=== PATIENT | female | born 1950 | race Caucasian/White ===

== ENCOUNTER 2017-05-08 14:49 | Observation (INO) ==
[2017-05-08 15:38] LABS: Bilirubin,Urine Negative (Negative); Blood,Urine Moderate (Negative); Clarity,Urine Clear (Clear); Color,Urine Yellow (Yellow); Glucose,Urine (UA) Normal (Normal); Ketones,Urine Negative (Negative); Leukocyte Esterase,Urine Trace (Negative); Nitrite,Urine Negative (Negative); Protein,Urine Negative (Neg-Trace); Specific Gravity,Urine 1.017 (1.010-1.025); Urobilinogen,Urine Normal (Normal)
[2017-05-08 15:40] LABS: Bacteria,Urine None Seen per hpf (None-Few); Hyaline Casts,Urine None Seen per lpf (None-Few); Squamous Epithelial Cell,Urine Few per lpf (None-Few)
[2017-05-08 16:25] LABS: Basophils % 0.4 %; Eosinophils # 0.2 K/mcL (0.0-0.6); Eosinophils % 2.6 %; Hematocrit 39.8 % (35.3-44.9); Hemoglobin 12.5 g/dL (11.5-15.4); Immature Granulocytes % 0.1 % (0-4); Lymphocytes # 2.6 K/mcL (0.6-4.6); Lymphocytes % 36.4 %; Mean Corpuscular HGB Conc 31.4 g/dL (31.6-35.5); Mean Corpuscular Hemoglobin 27.1 pg (28.0-33.3); Mean Corpuscular Volume 86.1 fL (83.0-100.0); Mean Platelet Volume 10.1 fL (9.4-12.4); Monocytes # 0.4 K/mcL (0.0-1.3); Monocytes % 5.5 %; Platelet Count 324 K/mcL (140-400); Red Blood Count 4.62 M/mcL (3.82-4.97); Red Cell Distribution Width 14.6 % (11.5-14.5)
--- NOTE | 2017-05-08 17:23 | Emergency Department Note ---
Disposition Clinical Impression: Chest pain Qualifiers: Chest pain type: unspecified Qualified Code(s): R07.9 - Chest pain, unspecified Disposition: Admitted As Inpatient Condition: Good Referrals: NONE,PCP [Primary Care Provider] - Forms: ED Satisfaction Letter, Work/School Release Time of Disposition: 19:03 General Adult HPI - General Chief complaint: ED Abdominal Pain Stated complaint: LUQ Pain Time Seen by Provider: 05/08/17 17:12 Source: patient Mode of arrival: ambulatory Limitations: no limitations Nursing Notes Reviewed: Yes Vital Signs Reviewed: Yes - History of Present Illness HPI Narrative: 67-year-old female who comes in complaining of left-sided chest pain. She points to the lateral lower left chest and wraps around to the anterior aspect. Cardiac risk factors include family history. Pt Subjective Complaint: Chest pain Onset (ago): day(s) (2 days) Location: chest Radiation: non-radiation Pain Severity: moderate Pain Scale: 5 Quality: aching Consistency: constant Improves with: nothing Worsens with: nothing Associated symptoms: Reports: chest pain Treatments Prior to Arrival: none - Related Data Previous Rx's Medication Instructions Recorded Albuterol Sulfate [Albuterol 2 puff IH Q4HR #1 hfa.aer.ad 04/03/17 Inhaler] Guaifenesin/Dm/Pseudoephedrine 1 each PO BID #20 tablet 04/03/17 [Capmist Dm Tablet] Allergies Allergy/AdvReac Type Severity Reaction Status Date / Time tetanus immune globulin Allergy SWELLING Verified 04/03/17 11:23 Penicillins AdvReac Itching Verified 04/03/17 11:23 Sulfa (Sulfonamide AdvReac Gastrointestinal Verified 04/03/17 11:23 Antibiotics) Upset steroids AdvReac LOWERED Uncoded 04/03/17 11:23 HEART RATE All systems ED: reviewed and negative except as stated. Constitutional: Denies: fever, chills, weakness, weight change Eyes: Denies: eye pain, eye discharge, vision change ENT ED: Denies: ear pain, throat pain, dental pain, hearing loss, epistaxis, congestion, dysphagia Cardiovascular: Reports: chest pain. Denies: palpitations, dyspnea on exertion , edema, syncope Respiratory: Denies: cough, dyspnea, wheezes, hemoptysis, stridor Gastrointestinal: Denies: abdominal pain, nausea, vomiting, diarrhea, constipation, hematemesis, melena, hematochezia Genitourinary: Denies: dysuria, frequency, hematuria, discharge Musculoskeletal: Denies: back pain, neck pain, arthralgia, myalgia Integumentary: Denies: rash, abrasion, lesions Neurological: Denies: headache, weakness, numbness, paresthesias, confusion, abnormal gait, vertigo Psychiatric: Denies: anxiety, depression, suicidal thoughts, homicidal thoughts , auditory hallucinations, visual hallucinations Endocrine: Denies: fatigue Hematological/Lymphatic: Denies: easy bleeding, easy bruising Allergic/Immunologic: Denies: facial swelling, urticaria Past Medical History - Past Medical History Medical history: Reports: non-contributory Surgical history: Reports: appendectomy, cholecystectomy Psychiatric history: Reports: no psych history 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 - Social History Smoking Status: Never smoker Smokeless Tobacco Status: No Alcohol use: Reports: none Drug use: Reports: none Physical Exam - General Limitations: no limitations General appearance: alert - Head Head exam: atraumatic, normocephalic, normal inspection - Eye Eye exam: Present: normal appearance, PERRL, EOMI - ENT ENT exam: normal exam, normal oropharynx, mucous membranes moist - Neck Neck exam: Present: normal inspection, full ROM, trachea midline - Chest Chest inspection: Present: normal inspection, symmetric chest wall rise - Respiratory Respiratory exam: Present: normal lung sounds bilaterally - Cardiovascular Cardiovascular exam: Present: regular rate, normal rhythm, normal heart sounds - Abdominal Exam Abdominal exam: Present: soft, Non-Tender. Absent: tenderness, distention, guarding, rebound, rigidity - Extremities Exam Extremities exam: Present: normal inspection, full ROM. Absent: tenderness, pedal edema - Expanded Lower Extremity Exam Neurovascular/Tendon exam: Absent: motor deficit, sensory deficit, tendon deficit Gait: observed and normal - Back Exam Back exam: Present: normal inspection, full ROM. Absent: tenderness - Neurological Exam Neurological exam: Present: alert, oriented X3 - Psychiatric Psychiatric exam: Present: normal affect, normal mood - Skin Skin exam: Present: warm, dry, intact, normal color Course - Reevaluation(s) Reevaluation #1: 67-year-old female who comes in complaining of pain in her chest. Since been gone for the last couple of days. Initial EKG no acute change initial troponin negative patient will be admitted for further evaluation. Time: 19:03 - Consultations Consultation #1: Discussed with Dr. Tolbert, admit. Time: 19:32 Vital Signs Temperature 98.7 F 05/08/17 15:09 Pulse Rate 60 05/08/17 15:09 Respiratory Rate 18 05/08/17 15:09 Blood Pressure 128/79 05/08/17 15:09 O2 Sat by Pulse Oximetry 98 05/08/17 15:09 Temperature 98.7 F 05/08/17 15:09 Pulse Rate 55 05/08/17 18:15 Respiratory Rate 10 05/08/17 18:15 Blood Pressure 139/84 05/08/17 18:15 O2 Sat by Pulse Oximetry 100 05/08/17 18:15 Oxygen Delivery Oxygen Delivery Room Air Medical Decision Making - Lab Data Lab results reviewed: Yes I reviewed the patient's lab results. Result diagrams: 05/08/17 16:01 05/08/17 16:01 Lab Results 05/08/17 05/08/17 05/08/17 Range/Units 15:18 16:01 16:01 WBC 7.2 (4.3-11.1) K/mcL RBC 4.62 (3.82-4.97) M/mcL Hgb 12.5 (11.5-15.4) g/dL Hct 39.8 (35.3-44.9) % MCV 86.1 (83.0-100.0) fL MCH 27.1 L (28.0-33.3) pg MCHC 31.4 L (31.6-35.5) g/dL RDW 14.6 H (11.5-14.5) % Plt Count 324 (140-400) K/mcL MPV 10.1 (9.4-12.4) fL Immature Gran % 0.1 (0-4) % Seg Neutrophils % 55.0 % Lymphocytes % 36.4 % Monocytes % 5.5 % Eosinophils % 2.6 % Basophils % 0.4 % Neutrophils # 4.0 (1.6-8.9) K/mcL Lymphocytes # 2.6 (0.6-4.6) K/mcL Monocytes # 0.4 (0.0-1.3) K/mcL Eosinophils # 0.2 (0.0-0.6) K/mcL Basophils # 0.0 (0.0-0.2) K/mcL Sodium 139 (136-145) mEq/L Potassium 4.2 (3.5-5.1) mEq/L Chloride 106 (98-107) mEq/L Carbon Dioxide 29 (23-29) mEq/L BUN 12 (8-23) mg/dL Creatinine 0.74 (0.60-1.20) mg/dL Est GFR ( Amer) > 60 (> 60) Est GFR (Non-Af Amer) > 60 (> 60) BUN/Creatinine Ratio 16 (6-26) Glucose 108 H (70-105) mg/dL Calculated Osmolality 288 (280-300) Calcium 9.4 (8.6-10.3) mg/dL Total Bilirubin 0.4 (0.3-1.0) mg/dL Direct Bilirubin 0.1 (0.0-0.2) mg/dL Indirect Bilirubin 0.3 (0.0-1.2) mg/dL AST 13 (13-39) Units/L ALT 8 (7-52) Units/L Alkaline Phosphatase 78 (34-104) Units/L Troponin I (< 0.04) ng/mL Serum Total Protein 7.1 (6.4-8.9) g/dL Albumin 4.2 (3.5-5.7) g/dL Globulin 2.9 (2.4-3.5) g/dL Albumin/Globulin Ratio 1.4 (1.1-2.2) Lipase 11 (11-82) Units/L Urine Color Yellow (Yellow) Urine Clarity Clear (Clear) Urine pH 6.0 (5.0-8.0) pH Units Ur Specific [place] 1.017 (1.010-1.025) Urine Protein Negative (Neg-Trace) mg/dL Urine Glucose (UA) Normal (Normal) mg/dL Urine Ketones Negative (Negative) mg/dL Urine Blood Moderate H (Negative) Urine Nitrite Negative (Negative) Urine Bilirubin Negative (Negative) Urine Urobilinogen Normal (Normal) mg/dL Ur Leukocyte Esterase Trace H (Negative) Urine Microscopic RBC 5-15 H (0-3) per hpf Urine Microscopic WBC 5-15 H (0-3) per hpf Ur Squamous Epith Cells Few (None-Few) per lpf Urine Bacteria None Seen (None-Few) per hpf Hyaline Casts None Seen (None-Few) per lpf Ur Culture Indicated? YES A (NO) 05/08/17 Range/Units 16:01 WBC (4.3-11.1) K/mcL RBC (3.82-4.97) M/mcL Hgb (11.5-15.4) g/dL Hct (35.3-44.9) % MCV (83.0-100.0) fL MCH (28.0-33.3) pg MCHC (31.6-35.5) g/dL RDW (11.5-14.5) % Plt Count (140-400) K/mcL MPV (9.4-12.4) fL Immature Gran % (0-4) % Seg Neutrophils % % Lymphocytes % % Monocytes % % Eosinophils % % Basophils % % Neutrophils # (1.6-8.9) K/mcL Lymphocytes # (0.6-4.6) K/mcL Monocytes # (0.0-1.3) K/mcL Eosinophils # (0.0-0.6) K/mcL Basophils # (0.0-0.2) K/mcL Sodium (136-145) mEq/L Potassium (3.5-5.1) mEq/L Chloride (98-107) mEq/L Carbon Dioxide (23-29) mEq/L BUN (8-23) mg/dL Creatinine (0.60-1.20) mg/dL Est GFR ( Amer) (> 60) Est GFR (Non-Af Amer) (> 60) BUN/Creatinine Ratio (6-26) Glucose (70-105) mg/dL Calculated Osmolality (280-300) Calcium (8.6-10.3) mg/dL Total Bilirubin (0.3-1.0) mg/dL Direct Bilirubin (0.0-0.2) mg/dL Indirect Bilirubin (0.0-1.2) mg/dL AST (13-39) Units/L ALT (7-52) Units/L Alkaline Phosphatase (34-104) Units/L Troponin I < 0.03 (< 0.04) ng/mL Serum Total Protein (6.4-8.9) g/dL Albumin (3.5-5.7) g/dL Globulin (2.4-3.5) g/dL Albumin/Globulin Ratio (1.1-2.2) Lipase (11-82) Units/L Urine Color (Yellow) Urine Clarity (Clear) Urine pH (5.0-8.0) pH Units Ur Specific [place] (1.010-1.025) Urine Protein (Neg-Trace) mg/dL Urine Glucose (UA) (Normal) mg/dL Urine Ketones (Negative) mg/dL Urine Blood (Negative) Urine Nitrite (Negative) Urine Bilirubin (Negative) Urine Urobilinogen (Normal) mg/dL Ur Leukocyte Esterase (Negative) Urine Microscopic RBC (0-3) per hpf Urine Microscopic WBC (0-3) per hpf Ur Squamous Epith Cells (None-Few) per lpf Urine Bacteria (None-Few) per hpf Hyaline Casts (None-Few) per lpf Ur Culture Indicated? (NO) - Radiology Data Radiology results reviewed: Yes I reviewed the patient's radiology results. Chest X-Ray 05/08/17 17:20 IMPRESSION: No radiographic evidence of acute cardiopulmonary disease. D/ / Luis Menchaca / Luis Menchaca Interpreting Provider: Luis Menchaca - EKG Data EKG #1 EKG attestation: Yes I reviewed and interpreted this EKG. EKG shows normal: sinus rhythm Rate: normal Rhythm: NSR Interpretation: no acute changes
[2017-05-08 17:59] LABS: Alanine Aminotransferase 8 Units/L (7-52); Albumin 4.2 g/dL (3.5-5.7); Albumin/Globulin Ratio 1.4 (1.1-2.2); Alkaline Phosphatase 78 Units/L (34-104); Aspartate Amino Transferase 13 Units/L (13-39); BUN/Creatinine Ratio 16 (6-26); Bilirubin,Direct 0.1 mg/dL (0.0-0.2); Bilirubin,Indirect 0.3 mg/dL (0.0-1.2); Bilirubin,Total 0.4 mg/dL (0.3-1.0); Blood Urea Nitrogen 12 mg/dL (8-23); Calcium 9.4 mg/dL (8.6-10.3); Carbon Dioxide 29 mEq/L (23-29); Chloride 106 mEq/L (98-107); Globulin 2.9 g/dL (2.4-3.5); Glucose 108 mg/dL (70-105); Lipase 11 Units/L (11-82); Osmolality,Calculated 288 (280-300); Potassium 4.2 mEq/L (3.5-5.1); Sodium 139 mEq/L (136-145); Total Protein 7.1 g/dL (6.4-8.9); eGFR For African Americans > 60 (> 60); eGFR For Non-African Americans > 60 (> 60)
[2017-05-08] MEDS ORDERED: Acetaminophen 325 MG TABLET PO ONE (18:17)
[2017-05-08] MEDS ORDERED: traMADol 50 MG TABLET PO PRN (21:47)
[2017-05-08] MEDS ORDERED: Acetaminophen 325 MG TABLET PO PRN (21:47)
[2017-05-08] MEDS ORDERED: Naloxone 0.4 MG/ML INJ IVP PRN (21:47)
--- NOTE | 2017-05-08 22:13 | Internal Med History&Physical ---
Date of Encounter: 05/08/17 Time of Encounter: 21:20 Assessment and Plan (1) Chest pain Current visit: Yes Status: Acute 1. Will cycle troponins, EKGs. 2. Will order fasting lipid profile. 3. Will schedule stress test in the morning if above negative. 4. Patient will likely need further GI work-up as outpatient for non-cardiac source of pain. Based upon history, I suspect her chest pain is GI in nature. 5. Will try Prilosec while in hospital to treat her GERD/CP. Qualifiers: Chest pain type: precordial pain Qualified Code(s): R07.2 - Precordial pain (2) GERD (gastroesophageal reflux disease) Current visit: Yes Status: Acute 1. Will try Prilosec orally. 2. I suspect this is her source of chest pain based upon history. 3. If above cardiac work-up negative, she will likely need outpatient GI work up. Qualifiers: Esophagitis presence: without esophagitis Qualified Code(s): K21.9 - Gastro -esophageal reflux disease without esophagitis (3) DVT prophylaxis Current visit: Yes Status: Acute 1. Heparin SQ. Internal Medicine - H&P: HPI Chief complaint: chest pain Admitted From: Emergency Dept Plans for Post Hospital Care: Home History of present illness: Ms. Fulton is a 67 year old female who presents with a 2 day history of chest pain and pressure in her left chest radiating to her left mid back. Pain is present both at rest and with exertion. Because of persistence of symptoms, she came to the ER where she was evaluated and admitted to the hospitalist service. Upon my assessment of the patient, she has minimal pain. She denies any fevers , cough, congestion, dyspnea, diaphoresis, nausea, or vomiting. She does complain of some dyspepsia and stomach upset. She also states the pain is similar to that of her gallbladder pain. She had cholecystectomy about a year and a half ago. She denies any change in bowel or bladder habits. Family history is pertinent for coronary artery disease. Her sister just had open heart surgery recently for severe coronary disease. She had a stress test 2 years ago, which was negative. Additionally, she had a heart catheterization about 15 years ago which was negative as well. Past Med Surg Social Fam HX - Past Medical History Attestation: Yes The following information was validated with the patient. Source: patient, old records reviewed Medical history: no medical history Psychiatric history: no psych history - Past Surgical History Surgical History: appendectomy, cholecystectomy - Social History Smoking Status: Never smoker Smokeless Tobacco Status: No Alcohol use: none Drug use: none Current living situation: Home Activity Level: Independent ambulation Recent Out of Country Travel Within the Last 8 Weeks: No - Family History Sister Living Status: Still Living Hx Family Cardiac Disorders: Yes (CAD; CABG) - Additional Family History Additional family history: Mother and Father with CAD Internal Medicine - H&P: Meds No Known Home Drugs 05/08/17 [History] 3 Allergy/AdvReac Type Severity Reaction Status Date / Time tetanus immune globulin Allergy SWELLING Verified 04/03/17 11:23 Penicillins AdvReac Itching Verified 04/03/17 11:23 Sulfa (Sulfonamide AdvReac Gastrointestinal Verified 04/03/17 11:23 Antibiotics) Upset steroids AdvReac LOWERED Uncoded 04/03/17 11:23 HEART RATE - Constitutional Constitutional: no chills, no fever(s) - EENT Eyes: no blurry vision, no change in vision Ears: no ear pain, no tinnitus Nose, mouth and throat: no nasal congestion, no sinus pain, no sinus pressure - Cardiovascular Cardiovascular ROS IM: chest pain, no diaphoresis, no dyspnea, no dyspnea on exertion, no palpitations, no syncope - Respiratory Respiratory: no cough, no dyspnea, no hemoptysis, no dyspnea on exertion, no chest congestion, no excessive phlegm production, no change in phlegm color - Gastrointestinal Gastrointestinal: dyspepsia, heartburn, no abdominal pain, no diarrhea, no hematemesis, no hematochezia, no melena, no nausea, no vomiting - Genitourinary Genitourinary: no dysuria, no flank pain, no hematuria - Musculoskeletal Musculoskeletal ROS IM: back pain, no arthralgias - Integumentary Integumentary IM: no rash, no jaundice - Neurological Neurological ROS: no dizziness, no focal weakness, no frequent falls, no headache(s) - Psychiatric Psychiatric: no anxiety, no depression - Endocrine Endocrine IM: no polydipsia, no polyuria - Hematologic/Lymphatic Hematologic/Lymphatic: no easy bruising, no lymphadenopathy - Allergic/Immunologic Allergic/Immunologic: GI upset with certain foods, no wheezing - Constitutional Vitals: Temp Pulse Resp BP Pulse Ox 98.7 F 58 15 124/71 99 05/08/17 15:09 05/08/17 19:52 05/08/17 20:38 05/08/17 20:38 05/08/17 19:52 General appearance: Present: cooperative, A&O X 3, pleasant, no acute distress, answers questions appropriately - Head Head exam: Present: atraumatic, normal inspection - Eye Eye exam: Present: EOMI, normal appearance, PERRL. Absent: scleral icterus Pupils: Present: normal accommodation - ENT ENT exam: Present: mucous membranes moist, normal exam - Neck Neck exam general surgery: Present: full ROM, supple. Absent: lymphadenopathy, tenderness, nuchal rigidity - Expanded Neck Exam Neck exam: Absent: carotid bruit - Respiratory Respiratory exam: Present: CTAB. Absent: chest wall tenderness, rales, respiratory distress, rhonchi, wheezes - Cardiovascular Cardiovascular exam: Present: RRR, +S1, +S2. Absent: diastolic murmur, systolic murmur - GI/Abdominal GI/Abdominal exam: Present: normal bowel sounds, soft. Absent: hepatomegaly, mass, splenomegaly, tenderness - Extremities Exam Extremities exam: Present: full ROM, normal capillary refill, warm, radial pulses palpable and symmetrical. Absent: calf tenderness, joint swelling, pedal edema, tenderness - Back Exam Back exam: Present: normal inspection. Absent: CVA tenderness (L), CVA tenderness (R) - Neurological Exam Neurological exam: Present: alert, CN II-XII intact, oriented X3, no focal deficits - Psychiatric Psychiatric exam: Present: normal affect, normal mood - Skin Skin exam: Present: dry, warm. Absent: rash Internal Med - H&P Results - Labs CBC & Chem 7: 05/08/17 16:01 05/08/17 16:01 - EKG Data -: EKG Interpreted by Myself EKG shows normal: sinus rhythm - EKG Data Prior EKG available for review: no EKG comments: 05/08/17 22:17 NSR; no acute ST-T changes - Diagnostic Studies Chest x-ray Status: image reviewed by me (negative)
[2017-05-08] MEDS: 0.9 % Sodium Chloride 1,000 ML IVC SCH (22:20)
[2017-05-08] MEDS: *HR* Heparin 5,000 UNIT/ML VIAL SQ SCH (22:21)
[2017-05-09] MEDS: *HR* OxyCODONE Immed Rel 5 MG TABLET PO PRN ×3 (00:52→08:09)
[2017-05-09 05:22] LABS: INR 1.1; Prothrombin Time 11.9 Seconds (9.4-12.1)
[2017-05-09 05:25] LABS: Activated Partial Thrombo Time 21.6 Seconds (26.0-36.0)
[2017-05-09] MEDS: *HR* Heparin 5,000 UNIT/ML VIAL SQ SCH ×2 (05:35→14:40)
[2017-05-09] MEDS ORDERED: *HR* OxyCODONE Immed Rel 5 MG TABLET PO ONE (05:49)
[2017-05-09 05:59] LABS: Alanine Aminotransferase 7 Units/L (7-52); Albumin 3.5 g/dL (3.5-5.7); Albumin/Globulin Ratio 1.5 (1.1-2.2); Alkaline Phosphatase 64 Units/L (34-104); Aspartate Amino Transferase 13 Units/L (13-39); BUN/Creatinine Ratio 17 (6-26); Bilirubin,Total 0.3 mg/dL (0.3-1.0); Blood Urea Nitrogen 12 mg/dL (8-23); Calcium 8.6 mg/dL (8.6-10.3); Carbon Dioxide 27 mEq/L (23-29); Chloride 109 mEq/L (98-107); Chol/HDL Ratio 2.7 (0-4.9); Cholesterol 155 mg/dL (< 200); Globulin 2.4 g/dL (2.4-3.5); Glucose 101 mg/dL (70-105); HDL Cholesterol 57 mg/dL (40-59); LDL Cholesterol,Calculated 85 mg/dL (0-99); Magnesium 2.2 mg/dL (1.6-2.6); Osmolality,Calculated 290 (280-300); Potassium 4.1 mEq/L (3.5-5.1); Sodium 140 mEq/L (136-145); Total Protein 5.9 g/dL (6.4-8.9); Triglycerides 65 mg/dL (< 150); eGFR For African Americans > 60 (> 60); eGFR For Non-African Americans > 60 (> 60)
[2017-05-09] MEDS ORDERED: Regadenoson 0.4 MG/5 ML SYRINGE IVP ONE (06:03)
[2017-05-09 06:22] LABS: Basophils % 0.6 %; Eosinophils # 0.3 K/mcL (0.0-0.6); Eosinophils % 3.8 %; Hematocrit 35.9 % (35.3-44.9); Hemoglobin 11.1 g/dL (11.5-15.4); Immature Granulocytes % 0.2 % (0-4); Lymphocytes # 2.8 K/mcL (0.6-4.6); Lymphocytes % 42.9 %; Mean Corpuscular HGB Conc 30.9 g/dL (31.6-35.5); Mean Corpuscular Hemoglobin 26.5 pg (28.0-33.3); Mean Corpuscular Volume 85.7 fL (83.0-100.0); Mean Platelet Volume 10.5 fL (9.4-12.4); Monocytes # 0.3 K/mcL (0.0-1.3); Monocytes % 5.2 %; Neutrophils # 3.1 K/mcL (1.6-8.9); Nucleated Red Blood Cells 0.5 /100 WBC (0); Platelet Count 267 K/mcL (140-400); Red Blood Count 4.19 M/mcL (3.82-4.97); Red Cell Distribution Width 14.5 % (11.5-14.5); Segmented Neutrophils % 47.3 %
[2017-05-09] MEDS ORDERED: Ondansetron 4 MG/2 ML VIAL IVP PRN (07:48)
[2017-05-09] MEDS ORDERED: Ondansetron 4 MG/2 ML VIAL ONE (07:52)
[2017-05-09] MEDS ORDERED: *HR* Promethazine 25 MG/ML VIAL IVP ONE (10:49)
[2017-05-09] MEDS ORDERED: Ketorolac 15 MG/ML VIAL IVP PRN (11:00)
[2017-05-09] MEDS ORDERED: SUMAtriptan 6 MG/0.5 ML SQ ONE (11:07)
[2017-05-09] MEDS: 0.9 % Sodium Chloride 1,000 ML IVC SCH (11:28)
--- NOTE | 2017-05-09 14:24 | Electrocardiograph Report ---
[place] [id number] Test Date: 2017-05-08 Pat Name: Joelle Fulton Department: 103 Room: 3B Gender: F Hand [employer]: CHRISTIANO : 1950 Requested By: Christopher Melo Order Number: [id number] Reading MD: Tony Walter DO Measurements Intervals [place] Rate: 60 P: -2 WA: 169 QRS: 12 QRSD: 90 T: 43 QT: 407 QTc: 408 Interpretive Statements SINUS RHYTHM POSSIBLE RIGHT VENTRICULAR CONDUCTION DELAY Electronically Signed On 05-09-2017 14:22:53 EST by Tony Walter DO
--- NOTE | 2017-05-09 18:54 | Internal Med Progress Note ---
Date of Encounter: 05/09/17 Time of Encounter: 12:00 - Assessment and plan (1) Chest pain Current Visit: Yes Status: Acute Assessment and plan: She has been experiencing chest pain for the past 2 days cardiac troponin was [address]-T wave abnormalities. She was to undergo a cardiac stress test this a.m. however she did experience a headache as well as nausea and vomiting and was unable to complete procedure. We will make patient nothing by mouth at midnight -attempt to repeat test in a.m. We will continue with Prilosec-patient may need a follow-up as outpatient with GI if stress is negative Qualifiers: Chest pain type: precordial pain Qualified Code(s): R07.2 - Precordial pain (2) Headache Current Visit: Yes Status: Acute Assessment and plan: Patient had sudden onset of headache initiated at the base of her skull radiating to her frontal area. She does have photophobia as well as blurred vision she has nausea and vomiting. Patient denies any history of migraines denies any trauma to her head. We will obtain CT of head to rule out any possible intracranial abnormalities or bleeding We will give a dose of Imitrex as well as Phenergan Qualifiers: Headache type: unspecified Headache chronicity pattern: acute headache Intractability: not intractable Qualified Code(s): R51 - Headache (3) GERD (gastroesophageal reflux disease) Current Visit: Yes Status: Acute Assessment and plan: Suspect the chest pain may be related to GI upset. We will continue with Prilosec If cardiac workup is negative patient will require a GI workup as outpatient Qualifiers: Esophagitis presence: without esophagitis Qualified Code(s): K21.9 - Gastro -esophageal reflux disease without esophagitis (4) DVT prophylaxis Current Visit: Yes Status: Acute Assessment and plan: Happens subcutaneous - Time Spent With Patient 25 - 35 minutes - Subjective Interval history: Patient presented to the ER 2 day history of chest pain pressure left chest radiating to her left back initial troponin was negative she also had been experiencing some nausea she denied any abdominal pain she did have her gallbladder removed about a year and a half ago. She has a family history of coronary artery disease had a sister with a recent open heart surgery. She had a stress test 2 years ago which was negative. She was scheduled to undergo a cardiac stress test this a.m. however upon arrival she began to experience nausea and vomiting. She was given an antibiotic however was unable to complete the exam. Upon assessment patient was complaining of throbbing headache initiated at the base of her head radiating to the front of her head. She did have photophobia as well as blurred vision neuro exam was unremarkable. Patient denies any history of migraines states she has never experienced a headache like this before. She was given Imitrex as well as Phenergan CT of head was obtained. - Constitutional Vitals: Temp Pulse Resp BP Pulse Ox 98.3 F 63 15 108/69 95 05/09/17 15:59 05/09/17 15:59 05/09/17 15:59 05/09/17 15:59 05/09/17 15:59 General appearance: Present: cooperative, A&O X 3, pleasant, no acute distress, answers questions appropriately - Head Head exam: Present: atraumatic, normocephalic - Eye Eye exam: Present: PERRL, conjuntiva pink, sclera anicteric Pupils: Present: PERRL - Neck Neck exam general surgery: Present: supple, trachea midline. Absent: lymphadenopathy - Respiratory Respiratory exam: Present: CTAB. Absent: accessory muscle use, rales, rhonchi, wheezes - Cardiovascular Cardiovascular exam: Present: RRR, +S1, +S2. Absent: diastolic murmur, gallop, rubs, systolic murmur - GI/Abdominal GI/Abdominal exam: Present: normal bowel sounds, soft, no peritoneal signs. Absent: distended, tenderness - Extremities Exam Extremities exam: Present: warm, radial pulses palpable and symmetrical. Absent : calf tenderness, cyanotic, pedal edema - Neurological Exam Neurological exam: Present: CN II-XII intact, oriented X3, no focal deficits, strengths equal and symetr throughout. Absent: pronater drift, facial droop, speech deficit Additional comments: Complains of headache and blurred vision - Expanded Neurological Exam Patient oriented to: Present: person, place, time Speech: Present: fluid speech Neuro motor strength exam: LUE: 5, RUE: 5, LLE: 5, RLE: 5 Coma Scale Eye Opening: Spontaneous Coma Scale Motor Response: Obeys Commands Coma Scale Verbal Response: Oriented Coma Scale Total: 15 Internal Medicine: Result - Labs CBC & Chem 7: 05/09/17 06:06 05/09/17 04:43 Labs: Short CBC 05/09/17 Range/Units 06:06 WBC 6.5 (4.3-11.1) K/mcL Hgb 11.1 L (11.5-15.4) g/dL Hct 35.9 (35.3-44.9) % Plt Count 267 (140-400) K/mcL Neutrophils # 3.1 (1.6-8.9) K/mcL BMP 05/09/17 04:43 Sodium 140 Potassium 4.1 Chloride 109 H Carbon Dioxide 27 BUN 12 Creatinine 0.69 Glucose 101 Calcium 8.6 Cardiac Enzymes 05/08/17 05/09/17 05/09/17 Range/Units 22:12 04:43 10:07 Troponin I < 0.03 < 0.03 < 0.03 (< 0.04) ng/mL Liver Function 05/09/17 Range/Units 04:43 Total Bilirubin 0.3 (0.3-1.0) mg/dL AST 13 (13-39) Units/L ALT 7 (7-52) Units/L Alkaline Phosphatase 64 (34-104) Units/L Albumin 3.5 (3.5-5.7) g/dL - ABG Interpretation ABG results: PT/INR, D-dimer PT 11.9 Seconds (9.4-12.1) 05/09/17 04:43 - EKG Interpretation EKG shows normal: sinus rhythm - Impressions Impressions Head CT 05/09/17 10:58 IMPRESSION: No acute intracranial abnormality. D/ / Kerwin Olguin MD / Kerwin Olguin MD Interpreting Provider: Kerwin Olguin MD Consult Discharge Plan - Plan Referrals: NONE,PCP [Primary Care Provider] -
[2017-05-09] MEDS: *HR* Promethazine 25 MG/ML VIAL IVP PRN (20:01)
[2017-05-09] MEDS: Ketorolac 15 MG/ML VIAL IVP PRN (20:01)
[2017-05-10] MEDS: Ketorolac 15 MG/ML VIAL IVP PRN (03:58)
[2017-05-10] MEDS: *HR* Heparin 5,000 UNIT/ML VIAL SQ SCH ×2 (05:48→16:47)
[2017-05-10] MEDS ORDERED: Ketorolac 15 MG/ML VIAL IVP ONE (06:19)
[2017-05-10] MEDS: *HR* Promethazine 25 MG/ML VIAL IVP PRN (06:26)
[2017-05-10] MEDS ORDERED: Regadenoson 0.4 MG/5 ML SYRINGE IVP ONE (08:34)
--- NOTE | 2017-05-10 13:59 | Neurology - Consult Note ---
<SaadiaSunny sosa - Last Filed: 05/10/17 16:18> Date of Encounter: 05/10/17 Time of Encounter: 13:56 Assessment and Plan (1) Headache Current Visit: Yes Status: Acute Patient's headaches could be indicative of atypical migraines as she appears to have visual auras with photophobia, phonophobia, and nausea. Patient's headaches are bilateral which is not usual migraines but certainly possible. Patient has no focal findings and head CT was negative. We will obtain CTA to rule out cerebral aneurysm. K continue symptomatic treatment with sumatriptan as needed. If patient's migraines become frequent could consider prophylactic treatment with Topamax. Qualifiers: Headache type: unspecified Headache chronicity pattern: acute headache Intractability: not intractable Qualified Code(s): R51 - Headache History of Present Illness Chief complaint: Chest Pain HPI: Ms. Fulton is a 67 year old female with no significant medical history was admitted initially for chest pain. Neurology was consulted due to headache. Patient reports for the last 5 or 6 years she has had a headache on a near daily basis. She states the pain starts in the back of her head and neck and radiates to the front of her head. She states this is bilateral in nature. She reports at times she has some blurry vision prior to the headache starting. She reports nausea, photophobia, phonophobia. She states the headache that she developed 2 days ago while in inpatient was the worst headache she has ever had. It felt similar in nature to her previous headaches but was more severe. She states it is improved with pain medication but has yet to totally resolved. She denies any focal weakness. She states that her mother and 2 of her siblings suffer from migraine headaches. She reports an injury at work 3-4 years ago in which something fell off the shelf and hit her in the neck that made her headaches worse. Past Med Surg Social Fam HX - Past Medical History Medical history: no medical history Psychiatric history: no psych history - Past Surgical History Surgical History: appendectomy, cholecystectomy - Social History Smoking Status: Never smoker Smokeless Tobacco Status: No Alcohol use: none Drug use: none - Family History Sister Hx Family Cardiac Disorders: Yes (CABG) Medications and Allergies No Known Home Drugs 05/08/17 [History] 3 Allergy/AdvReac Type Severity Reaction Status Date / Time tetanus immune globulin Allergy SWELLING Verified 04/03/17 11:23 Penicillins AdvReac Itching Verified 04/03/17 11:23 Sulfa (Sulfonamide AdvReac Gastrointestinal Verified 04/03/17 11:23 Antibiotics) Upset steroids AdvReac LOWERED Uncoded 04/03/17 11:23 HEART RATE All Systems: A 10-system review of systems was performed and is negative for pertinent findings except as documented above in the HPI. Physical Examination - Vital Signs Vital Signs: Initial Vital Signs Temp Pulse Resp BP Pulse Ox 98.7 F 60 18 128/79 98 05/08/17 15:09 05/08/17 15:09 05/08/17 15:09 05/08/17 15:09 05/08/17 15:09 - Constitutional General appearance: comfortable - Neurologic Sensorimotor examination: intact Detailed motor examination: grossly full strength in all extremities Motor examination - right side: 5/5: deltoids, biceps, triceps, wrist flexion, wrist extension, trim machine operator, hip flexors, tibialis Anterior, quadriceps, toe extension (EHL), plantarflexion Motor examination - left side: 5/5: deltoids, biceps, triceps, wrist flexion, wrist extension, hip flexors, trim machine operator, quadriceps, tibialis Anterior, toe extension (EHL), plantarflexion Detailed sensory examination: intact Reflexes: Biceps: 2+, Brachioradialis: 2+, Patella: 2+, Achilles: 2+ Mental Status Examination: awake, alert, oriented to person, oriented to place, oriented to time, follows commands appropriately, answers questions appropriately Cranial nerve examination: PERRL, EOMI, visual yuan intact, sensory to face intact, mastication intact, no facial asymmetry is present, no dysarthria, flexes SCM and trapezius muscles symmetrically with full power, tongue protrudes midline, no atrophy or facial fasiculations present Cerebellar examination: performs finger to nose and heel to tapia symmetrically without ataxia, no difficulty with rapid alternating movements Results - Laboratory Findings CBC and BMP: 05/09/17 06:06 05/09/17 04:43 Abnormal lab findings: Abnormal lab results Hgb 11.1 g/dL (11.5-15.4) L 05/09/17 06:06 MCH 26.5 pg (28.0-33.3) L 05/09/17 06:06 MCHC 30.9 g/dL (31.6-35.5) L 05/09/17 06:06 Nucleated RBCs/100 WBC 0.5 /100 WBC (0) H 05/09/17 06:06 APTT 21.6 Seconds (26.0-36.0) L 05/09/17 04:43 Chloride 109 mEq/L (98-107) H 05/09/17 04:43 Serum Total Protein 5.9 g/dL (6.4-8.9) L 05/09/17 04:43 Urine Blood Moderate (Negative) H 05/08/17 15:18 Ur Leukocyte Esterase Trace (Negative) H 05/08/17 15:18 Urine Microscopic RBC 5-15 per hpf (0-3) H 05/08/17 15:18 Urine Microscopic WBC 5-15 per hpf (0-3) H 05/08/17 15:18 Ur Culture Indicated? YES (NO) A 05/08/17 15:18 Consult Discharge Plan - Plan Referrals: NONE,PCP [Primary Care Provider] - <Sunny Yuen - Last Filed: 05/10/17 17:34> Date of Encounter: 05/10/17 Time of Encounter: 17:31 Assessment and Plan (1) Headache Current Visit: Yes Status: Acute As above. I also suspect there may be a rebound headache component involved due to her frequent use of [id number] analgesics. If the CTA scan of brain is negative. May discharge her at your discretion. Qualifiers: Headache type: unspecified Headache chronicity pattern: acute headache Intractability: not intractable Qualified Code(s): R51 - Headache History of Present Illness HPI: The chart was reviewed, the patient was seen and examined independently. The case was discussed with Dr. Malone. I agree with his history as stated above. All Systems: A 10-system review of systems was performed and is negative for pertinent findings except as documented above in the HPI. Physical Examination - Vital Signs Vital Signs: Initial Vital Signs Temp Pulse Resp BP Pulse Ox 98.7 F 60 18 128/79 98 05/08/17 15:09 05/08/17 15:09 05/08/17 15:09 05/08/17 15:09 05/08/17 15:09 Results - Laboratory Findings CBC and BMP: 05/09/17 06:06 05/09/17 04:43 Abnormal lab findings: Abnormal lab results Hgb 11.1 g/dL (11.5-15.4) L 05/09/17 06:06 MCH 26.5 pg (28.0-33.3) L 05/09/17 06:06 MCHC 30.9 g/dL (31.6-35.5) L 05/09/17 06:06 Nucleated RBCs/100 WBC 0.5 /100 WBC (0) H 05/09/17 06:06 APTT 21.6 Seconds (26.0-36.0) L 05/09/17 04:43 Chloride 109 mEq/L (98-107) H 05/09/17 04:43 Serum Total Protein 5.9 g/dL (6.4-8.9) L 05/09/17 04:43 Urine Blood Moderate (Negative) H 05/08/17 15:18 Ur Leukocyte Esterase Trace (Negative) H 05/08/17 15:18 Urine Microscopic RBC 5-15 per hpf (0-3) H 05/08/17 15:18 Urine Microscopic WBC 5-15 per hpf (0-3) H 05/08/17 15:18 Ur Culture Indicated? YES (NO) A 05/08/17 15:18
--- NOTE | 2017-05-10 19:25 | Internal Med Progress Note ---
Date of Encounter: 05/10/17 Time of Encounter: 17:00 - Assessment and plan (1) Chest pain Current Visit: Yes Status: Acute Assessment and plan: Patient underwent cardiac stress test today results: Perfusion imaging was negative for ischemia or infarct. Pharmacologic stress ECG is non diagnostic for ischemia due to baseline With continued cardiac monitoring for now Patient will follow up with cardiology as outpatient Qualifiers: Chest pain type: precordial pain Qualified Code(s): R07.2 - Precordial pain (2) Headache Current Visit: Yes Status: Acute Assessment and plan: Patient continues to experience headache despite the use of Toradol and Phenergan. We will consult neurology Continue with Toradol Phenergan and Imitrex as needed Qualifiers: Headache type: unspecified Headache chronicity pattern: acute headache Intractability: not intractable Qualified Code(s): R51 - Headache (3) GERD (gastroesophageal reflux disease) Current Visit: Yes Status: Acute Assessment and plan: Suspect the chest pain may be related to GI upset. We will continue with Prilosec She can follow up with GI as outpatient Qualifiers: Esophagitis presence: without esophagitis Qualified Code(s): K21.9 - Gastro -esophageal reflux disease without esophagitis (4) DVT prophylaxis Current Visit: Yes Status: Acute Assessment and plan: Happens subcutaneous - Time Spent With Patient less than 15 minutes - Subjective Interval history: Patient continues to experience off and on headaches with photophobia and blurred vision nausea and vomiting. She states they are relieved with the medication. She denies any chest pain or shortness of breath she is hemodynamically stable at this time - Constitutional Vitals: Temp Pulse Resp BP Pulse Ox 98.0 F 66 17 112/71 96 05/10/17 16:01 05/10/17 16:01 05/10/17 16:01 05/10/17 16:01 05/10/17 16:01 General appearance: Present: cooperative, A&O X 3, pleasant, no acute distress, answers questions appropriately - Head Head exam: Present: atraumatic, normocephalic - Eye Eye exam: Present: PERRL, conjuntiva pink, sclera anicteric Pupils: Present: PERRL - Neck Neck exam general surgery: Present: supple, trachea midline. Absent: lymphadenopathy - Respiratory Respiratory exam: Present: CTAB. Absent: accessory muscle use, rales, rhonchi, wheezes - Cardiovascular Cardiovascular exam: Present: RRR, +S1, +S2. Absent: diastolic murmur, gallop, rubs, systolic murmur - GI/Abdominal GI/Abdominal exam: Present: normal bowel sounds, soft, no peritoneal signs. Absent: distended, tenderness - Extremities Exam Extremities exam: Present: warm, radial pulses palpable and symmetrical. Absent : calf tenderness, cyanotic, pedal edema - Neurological Exam Neurological exam: Present: CN II-XII intact, oriented X3, no focal deficits. Absent: pronater drift, facial droop, speech deficit - Skin Skin exam: Present: dry, intact Internal Medicine: Result - Labs CBC & Chem 7: 05/09/17 06:06 05/09/17 04:43 - ABG Interpretation ABG results: PT/INR, D-dimer PT 11.9 Seconds (9.4-12.1) 05/09/17 04:43 Consult Discharge Plan - Plan Referrals: NONE,PCP [Primary Care Provider] -
[2017-05-11] MEDS: *HR* Heparin 5,000 UNIT/ML VIAL SQ SCH (04:31)
[2017-05-11] MEDS: Ketorolac 15 MG/ML VIAL IVP PRN (04:32)
[2017-05-11] MEDS: *HR* Promethazine 25 MG/ML VIAL IVP PRN (04:32)
[2017-05-11 07:08] VITALS: BP 133/78
--- NOTE | 2017-05-11 07:42 | Discharge Summary ---
Date of Encounter: 05/11/17 Time of Encounter: 07:40 - Discharge Diagnosis (1) Chest pain Priority: Primary Status: Acute Comments: Patient underwent cardiac stress test results: Perfusion imaging was negative for ischemia or infarct. Pharmacologic stress ECG is non diagnostic for ischemia due to baseline With continued cardiac monitoring for now Patient will follow up with cardiology as outpatient Suspect chest pain may be related to GI issues patient can follow up with GI as an outpatient Continue with Prilosec Qualifiers: Chest pain type: precordial pain Qualified Code(s): R07.2 - Precordial pain (2) Headache Priority: Primary Status: Acute Comments: Headaches have improved with medication. CT negative for any intracranial abnormalities CTA negative for any aneurysms. Most likely headaches related to migraines Neurologic he has seen patient we will have her follow-up as an outpatient We will continue with Imitrex and Zofran as needed She can follow up as outpatient with neurology Qualifiers: Headache type: unspecified Headache chronicity pattern: acute headache Intractability: not intractable Qualified Code(s): R51 - Headache (3) GERD (gastroesophageal reflux disease) Priority: Secondary Status: Acute Comments: Patient has been complaining of some gastric reflux. We will continue with Prilosec We will have patient follow-up with GI as outpatient Qualifiers: Esophagitis presence: without esophagitis Qualified Code(s): K21.9 - Gastro -esophageal reflux disease without esophagitis - Discharge Medications Prescriptions: Ondansetron ODT [Zofran ODT] 4 mg SL Q8HR #10 tab.esteban Omeprazole [PriLOSEC] 20 mg PO BIDAC #60 capsule. SUMAtriptan Succinate [Imitrex] 50 mg PO ONCE #4 tablet Home Medications: Omeprazole [PriLOSEC] 20 mg PO BIDAC #60 capsule. 05/11/17 [Rx] Ondansetron ODT [Zofran ODT] 4 mg SL Q8HR #10 tab.rapdis 05/11/17 [Rx] SUMAtriptan Succinate [Imitrex] 50 mg PO ONCE #4 tablet 05/11/17 [Rx] Allergies/Adverse Reactions: 3 Allergy/AdvReac Type Severity Reaction Status Date / Time tetanus immune globulin Allergy SWELLING Verified 04/03/17 11:23 Penicillins AdvReac Itching Verified 04/03/17 11:23 Sulfa (Sulfonamide AdvReac Gastrointestinal Verified 04/03/17 11:23 Antibiotics) Upset steroids AdvReac LOWERED Uncoded 04/03/17 11:23 HEART RATE Procedures/tests Complete & Pending: Procedures Performed prior 72 hours Category Date Time Status CT head/brain wo con [CT] Stat Cat Scan 05/09/17 10:58 Completed CTA Head [CT angio head] [CT] Routine Cat Scan 05/10/17 16:16 Completed NM catarina perf SPECT multi [NM] Routine Exams 05/09/17 06:00 Taken ECG 12 lead ECG [ECG] AM 0600 Y 05/09/17 06:00 Ordered SP pharm nuclear stress Routine Y 05/10/17 Completed Date of admission: 05/08/17 20:51 Primary care physician: PCP NONE Consults: 05/10/17 08:50 Consult to Neurology [CONS] Routine Consulting Provider: [facility] Reason for Consult: headache Time Notified: 08:50 Call Completed: Yes Discharging clinician: [place] Carmen Anticipated date of discharge: 05/11/17 - Patient Status Disposition: Home, Self-Care Condition: Good - Discharge Instructions Instructions: Chest Pain (DC) Follow Up With: NONE,PCP [Primary Care Provider] - Azucena Galindo MD [Partnered Physician] - Jori Yuen MD [Non-Partnered Physician] - - Diet and Activity Activity: increase activity as tolerated Diet: low fat, low cholesterol Hospital course: Ms. Fulton is a 67 year old female no significant past medical history she initially presented with 2 day history of chest pain and pressure left chest radiating to her left back her troponins were negative she went for a cardiac stress echo prior to the stress she developed headache initiated in the base of her neck she has associated symptoms of photophobia and blurred vision nausea and vomiting. Patient denies any past history of headaches or migraines. CT of head was negative. Symptoms did improve with Imitrex and Toradol. She did get him for a cardiac stress which was negative for any ischemia or infarct. Suspect the chest pain may be GI in nature. We will continue with Prilosec which she stated has improved her GERD symptoms. CTA was completed per neurology's recommendations-did not show any aneurysm or abnormality. - Time Spent with Patient Total time spent providing and/or coordinating discharge services: - Constitutional Vitals: Temp Pulse Resp BP Pulse Ox 97.5 F L 56 16 133/78 97 05/11/17 07:07 05/11/17 07:07 05/11/17 07:07 05/11/17 07:07 05/11/17 07:07 General appearance: Present: cooperative, A&O X 3, pleasant, no acute distress, answers questions appropriately - Head Head exam: Present: atraumatic, normocephalic - Eye Eye exam: Present: PERRL, conjuntiva pink, sclera anicteric Pupils: Present: PERRL - Neck Neck exam general surgery: Present: supple, trachea midline. Absent: lymphadenopathy - Respiratory Respiratory exam: Present: CTAB. Absent: accessory muscle use, rales, rhonchi, wheezes - Cardiovascular Cardiovascular exam: Present: RRR, +S1, +S2. Absent: diastolic murmur, gallop, rubs, systolic murmur - GI/Abdominal GI/Abdominal exam: Present: normal bowel sounds, soft, no peritoneal signs. Absent: distended, tenderness - Extremities Exam Extremities exam: Present: warm, radial pulses palpable and symmetrical. Absent : calf tenderness, cyanotic, pedal edema - Neurological Exam Neurological exam: Present: CN II-XII intact, oriented X3, no focal deficits. Absent: pronater drift, facial droop, speech deficit - Skin Skin exam: Present: dry, intact
--- NOTE | 2017-05-11 09:07 | Neurology Progress Note ---
<Sunny Monson - Last Filed: 05/11/17 09:04> Date of Encounter: 05/11/17 Time of Encounter: 09:05 Assessment and Plan (1) Headache Status: Acute She reports mild headache this morning that was relieved easily but otherwise has no complaints. CT of the scan was negative and no aneurysms were noted. Patient is stable for discharge from a neurologic standpoint and agree with primary team's plan to send home with Imitrex for symptomatic treatment and follow-up as an outpatient. Qualifiers: Headache type: unspecified Headache chronicity pattern: acute headache Intractability: not intractable Qualified Code(s): R51 - Headache Subjective Principal diagnosis: Headache Interval history: Patient seen and examined at bedside. Patient states that she had a mild headache this morning that was easily relieved with medication. She denies any other events overnight. Objective - Constitutional Vitals: Temp Pulse Resp BP Pulse Ox 97.5 F L 56 16 133/78 97 05/11/17 07:07 05/11/17 07:07 05/11/17 07:07 05/11/17 07:07 05/11/17 07:07 - Neurological Exam Sensorimotor examination: Present: intact Motor Examination: Present: grossly full strength in all extremities Sensation intact: Present: intact Mental Status Examination: Present: awake, alert, oriented to person, oriented to place, oriented to time, follows commands appropriately, answers questions appropriately Cranial nerve examination: Present: EOMI, mastication intact, no dysarthria Results - Laboratory Findings CBC and BMP: 05/09/17 06:06 05/09/17 04:43 Abnormal lab findings: Abnormal lab results Hgb 11.1 g/dL (11.5-15.4) L 05/09/17 06:06 MCH 26.5 pg (28.0-33.3) L 05/09/17 06:06 MCHC 30.9 g/dL (31.6-35.5) L 05/09/17 06:06 Nucleated RBCs/100 WBC 0.5 /100 WBC (0) H 05/09/17 06:06 APTT 21.6 Seconds (26.0-36.0) L 05/09/17 04:43 Chloride 109 mEq/L (98-107) H 05/09/17 04:43 Serum Total Protein 5.9 g/dL (6.4-8.9) L 05/09/17 04:43 Urine Blood Moderate (Negative) H 05/08/17 15:18 Ur Leukocyte Esterase Trace (Negative) H 05/08/17 15:18 Urine Microscopic RBC 5-15 per hpf (0-3) H 05/08/17 15:18 Urine Microscopic WBC 5-15 per hpf (0-3) H 05/08/17 15:18 Ur Culture Indicated? YES (NO) A 05/08/17 15:18 Consult Discharge Plan - Plan Instructions: Chest Pain (DC), Migraine Headache (DC), Gastroesophageal Reflux Disease (DC) Referrals: Michelle Alba CNP [Advanced Practice Nurse] - 05/18/17 9:00 am Sunny Yuen DO [Partnered Physician] - 05/29/17 11:15 am Azucena Galindo MD [Partnered Physician] - (hospital follow up appointment web requested. office will call with date and time of appointment. ) Prescriptions: Ondansetron ODT [Zofran ODT] 4 mg SL Q8HR #10 tab.rapdis Fluconazole [Diflucan] 150 mg PO DAILY #2 tab Omeprazole [PriLOSEC] 20 mg PO BIDAC #60 capsule. SUMAtriptan Succinate [Imitrex] 50 mg PO ONCE #4 tablet <Sunny Yuen - Last Filed: 05/11/17 16:02> Date of Encounter: 05/11/17 Time of Encounter: 16:01 Assessment and Plan (1) Headache Status: Acute Unfortunately I was not able to round on this patient prior to her discharge today. Qualifiers: Headache type: unspecified Headache chronicity pattern: acute headache Intractability: not intractable Qualified Code(s): R51 - Headache Subjective Interval history: Unfortunately I was not able to round on this patient prior to her discharge. Objective - Constitutional Vitals: Temp Pulse Resp BP Pulse Ox 97.5 F L 56 16 133/78 97 05/11/17 07:07 05/11/17 07:07 05/11/17 07:07 05/11/17 07:07 05/11/17 07:07 Results - Laboratory Findings CBC and BMP: 05/09/17 06:06 05/09/17 04:43 Abnormal lab findings: Abnormal lab results Hgb 11.1 g/dL (11.5-15.4) L 05/09/17 06:06 MCH 26.5 pg (28.0-33.3) L 05/09/17 06:06 MCHC 30.9 g/dL (31.6-35.5) L 05/09/17 06:06 Nucleated RBCs/100 WBC 0.5 /100 WBC (0) H 05/09/17 06:06 APTT 21.6 Seconds (26.0-36.0) L 05/09/17 04:43 Chloride 109 mEq/L (98-107) H 05/09/17 04:43 Serum Total Protein 5.9 g/dL (6.4-8.9) L 05/09/17 04:43 Urine Blood Moderate (Negative) H 05/08/17 15:18 Ur Leukocyte Esterase Trace (Negative) H 05/08/17 15:18 Urine Microscopic RBC 5-15 per hpf (0-3) H 05/08/17 15:18 Urine Microscopic WBC 5-15 per hpf (0-3) H 05/08/17 15:18 Ur Culture Indicated? YES (NO) A 05/08/17 15:18
== END 2017-05-11 12:07 | disposition home or self-care (01) ==
LOC: EMEROO 14:49 → 3BNU 14:49
PROVIDERS: ADMIT Pediatrics; ATTEND Registered Nurse